=== PATIENT | female | born 1975 ===

== ENCOUNTER 2018-03-12 08:19 | Outpatient (CLI) | payer SELFPAY ==
[2018-03-12 11:13] LABS: HEMOGLOBIN A1C 5.8 % (4.5-6.2)
[2018-03-12 11:28] LABS: CHOL/HDL RATIO 3.55 (0.00-4.99)
== END 2018-03-12 23:59 | disposition home or self-care (01) ==
LOC: HW HEART 08:19
DX: Z13.6 Encounter for screening for cardiovascular disorders (principal)
CPT/HCPCS: 36415